=== PATIENT | female | born 1995 | race Caucasian/White ===

== ENCOUNTER 2023-04-19 05:02 | Inpatient (IN) | payer OTHER, SELFPAY ==
[2023-04-19] VITALS (243 sets, daily range): BP systolic 76–147; BP diastolic 40–95; PULSE 52–201; TEMP 36.1–37.2; O2SAT 84–100; BMI 36.9
--- NOTE | 2023-04-19 05:25 | LDADM ---
This patient, Sonia Plascencia, was admitted to Labor/Delivery/Recovery 105 on 04/19/23 at 05:02. Plans for labor, pain management and were discussed with patient. Patient/family oriented to hospital policies and general routines including ID bracelet, bed and alarms, visiting hours, pain management, procedures, bathroom and other care routines, personal items, smoking policy, room service/diet and guest tray routines, infant security routines, and visiting hours. Patient/Family are encouraged to report perceived risks to care and to ask questions if they do not understand what they are told or what they should do. See OBIX for further documentation.
[2023-04-19 05:52] LABS: Basophils Percent Auto 0.3 % (0.2-1.2); Eosinophils Absolute Auto 0.1 K/mm3 (0-0.3); Eosinophils Percent Auto 0.5 % (0-4.4); Hemoglobin 9.8 g/dL (12.0-15.0); Immature Granulocyte Absolute 0.06 K/mm3 (0.00-0.031); Immature Granulocyte Percent A 0.6 % (0-0.5); Lymphocytes Absolute Auto 2.32 K/mm3 (0.9-3.2); Lymphocytes Percent Auto 24.6 % (18.3-44.2); Mean Corpuscular HGB Conc 31.6 g/dl (32-36); Mean Corpuscular Hemoglobin 26.8 pg (26-34); Mean Corpuscular Volume 84.9 fl (80-100); Mean Platelet Volume 9.8 fl (7.4-10.4); Monocytes Absolute Auto 0.6 K/mm3 (0.1-0.6); Monocytes Percent Auto 5.8 % (2.6-8.5); Neutrophils Absolute Auto 6.4 K/mm3 (1.3-6.7); Neutrophils Percent Auto 68.2 % (45.5-73.1); Platelet Count Result 181 k/mm3 (150-375); Red Blood Count 3.65 M/mm3 (4.2-5.4); Red Cell Distribution Width 13.8 % (11.5-14.5); White Blood Count 9.4 K/mm3 (4.5-10.0)
[2023-04-19] MEDS: LACTATED RINGERS 1,000 ML 125 ML IV CONT ×3 (05:55→15:34)
[2023-04-19] MEDS: AMPICILLIN 2 GM/NS 100 ML 2 GM/100 ML BAG IVPB (05:55)
[2023-04-19] MEDS: OXYTOCIN 30 UNITS/NS 500 ML 30 UNITS/500 ML BAG IV CONT (05:55)
--- NOTE | 2023-04-19 06:30 | PM.IMHP ---
H&P: HPI History of Present Illness Date/Time: 04/19/23 06:30 Chief Complaint: induction of labor at term with positive group B strep Narrative: this is a 27-year-old 2 para 1 whose last menstrual period was 07/26/2022, EDC is 04/26/2023, confirmed by early ultrasound who presents at term for induction of labor. She is positive for group B strep. Her has been otherwise uncomplicated. [facility] Family History Family History Other Patient denies significant medical history Social History Social History Smoking status: Never smoker Substance use: never Lack of Transportation: No Lack of Food: Never True Current Housing: I Have Housing Concerned About Future Housing: No Difficulty Paying Gas/Electric Bills: No Difficulty Paying for Meds: No Currently Unemployed: No Education: Trade/Vocational Certificate Difficulty w/ Childcare or Family Care: No Spiritual care concerns: No Meds Home Medications and Allergies Home Medications Medication Instructions Recorded Confirmed Type prenat.vits,kurtis,xzp-[id number]-ampdq tablet 04/02/23 History Allergies Allergy/AdvReac Type Severity Reaction Status Date / Time hydrocodone Allergy Intermediate ITCHING,SWE Verified 04/02/23 13:42 LLING oxycodone Allergy Intermediate ITCHING,SWE Verified 04/02/23 13:42 LLING hydroxyzine Allergy Mild Itching Verified 04/02/23 13:42 Sulfa (Sulfonamide Allergy Redness of Verified 04/02/23 13:41 Antibiotics) Skin Vital Signs Vital Signs - 24 hr 04/19/23 05:24 04/19/23 05:31 04/19/23 05:57 Pulse Rate 88 79 82 Blood Pressure 128/66 123/76 128/78 Oxygen Delivery 04/19/23 06:01 04/19/23 06:16 04/19/23 05:25 Pulse Rate 81 80 Blood Pressure 128/74 125/63 Oxygen Delivery Room Air Exam Const: General: cooperative, healthy appearing, comfortable and overweight Orientation/consciousness: oriented to person, oriented to place and oriented to time HENMT: Head: normal to inspection Resp: Effort & Inspection: normal respiratory effort Cardio: Rate: regular rate Rhythm: regular rhythm Heart sounds: S1 normal heart sound present and S2 normal heart sound present GI: Inspection: normal to inspection ( Gravid soft uterus) : External Female Exam: normal external appearance Speculum Exam - Vagina: normal appearance of the vagina Speculum Exam - Cervix: normal appearance of the cervix ( 2/50/2. AROM clear. FHTs reassuring) H&P: Results Labs Labs: Short CBC 04/19/23 Range/Units 05:45 WBC 9.4 (4.5-10.0) K/mm3 Hgb 9.8 L (12.0-15.0) g/dL Hct 31.0 L (37.0-47.0) % Plt Count 181 (150-375) k/mm3 Assessment and Plan Assessment and plan (1) Term : Code(s): Z34.90 - Encounter for supervision of normal , unspecified, unspecified trimester Status: Acute (2) Positive testing for group B Streptococcus: Code(s): B95.1 - Streptococcus, group B, as the cause of diseases classified elsewhere Status: Acute Plan medical induction of labor. Group B strep prophylaxis. Spontaneous vaginal delivery expected. She is an epidural candidate
[2023-04-19 07:58] LABS: Rapid Plasma Reagin Non-Reactive (NonReactive)
--- NOTE | 2023-04-19 10:03 | WPDANESEPP ---
Anes - Eval Pre Procedure Procedure: Labor Epidural Date/Time: 04/19/23 10:03 Surgeon: Harmeet Preop Diagnosis: Labor Pain Pre Op Diagnosis: Induction of Labor Patient Data Age: 28 Gender: F Height: 1.63 m Weight: 97.72 kg Last Vital Signs Temp 36.5 C 04/19/23 09:00 Pulse 76 04/19/23 10:01 BP 125/54 L 04/19/23 10:01 Pulse Ox 100 04/19/23 09:58 O2 Del Method Room Air 04/19/23 05:25 Allergies Allergy/AdvReac Type Severity Reaction Status Date / Time hydrocodone Allergy Intermediate ITCHING,SWE Verified 04/02/23 13:42 LLING oxycodone Allergy Intermediate ITCHING,SWE Verified 04/02/23 13:42 LLING hydroxyzine Allergy Mild Itching Verified 04/02/23 13:42 Sulfa (Sulfonamide Allergy Redness of Verified 04/02/23 13:41 Antibiotics) Skin Home Medications Medication Instructions Recorded Confirmed Type prenat.vits,kurtis,yzp-qxhq-xnblb tablet 04/02/23 History Laboratory Tests 04/19/23 05:45 WBC 9.4 K/mm3 (4.5-10.0) RBC 3.65 L M/mm3 (4.2-5.4) Hgb 9.8 L g/dL (12.0-15.0) Hct 31.0 L % (37.0-47.0) MCV 84.9 fl (80-100) MCH 26.8 pg (26-34) MCHC 31.6 L g/dl (32-36) RDW 13.8 % (11.5-14.5) Plt Count 181 k/mm3 (150-375) MPV 9.8 fl (7.4-10.4) Immature Gran % (Auto) 0.6 H % (0-0.5) Neut % (Auto) 68.2 % (45.5-73.1) Lymph % (Auto) 24.6 % (18.3-44.2) [place] % (Auto) 5.8 % (2.6-8.5) Eos % (Auto) 0.5 % (0-4.4) Baso % (Auto) 0.3 % (0.2-1.2) Lymph # (Auto) 2.32 K/mm3 (0.9-3.2) [place] # (Auto) 0.6 K/mm3 (0.1-0.6) Eos # (Auto) 0.1 K/mm3 (0-0.3) Baso # (Auto) 0.0 K/mm3 (0.0-0.1) Abs Immat Gran (auto) 0.06 H K/mm3 (0.00-0.031) Absolute Neuts (auto) 6.4 K/mm3 (1.3-6.7) Absolute Nucleated RBC 0.0 K/mm3 (0.0-0.012) Nucleated RBC % 0.0 % (0.0-0.2) RPR Non-reactive (NonReactive) Blood Type A Positive Antibody Screen Negative : gestational age (JOSÉ 04/26/23, ) HCG: negative Patient hx anesthesia problems: none Family hx anesthesia problems: none Results Review: All pre-operative results and documents have been reviewed as part of the pre-operative evaluation. [facility] Family History Family History Other Patient denies significant medical history Social History Social History Smoking status: Never smoker Substance use: never Lack of Transportation: No Lack of Food: Never True Current Housing: I Have Housing Concerned About Future Housing: No Difficulty Paying Gas/Electric Bills: No Difficulty Paying for Meds: No Currently Unemployed: No Education: Trade/Vocational Certificate Difficulty w/ Childcare or Family Care: No Spiritual care concerns: No Exam Day of Procedure 04/19/23 10:03 Patient weight: obese Heart: regular rate and rhythm Lungs: normal air movement Airway: Mallampati scale class II Neurological: alert and oriented
[2023-04-19] MEDS: AMPICILLIN 1 GM/NS 50 ML 1 GM/50 ML BAG IVPB ×3 (10:10→17:49)
--- NOTE | 2023-04-19 11:46 | PM.OBPNLAB ---
Pain Control Date/time seen: 04/19/23 11:46 Pain control: tolerating well and epidural Pelvic Exam Dilation (cm): 3 Effacement (%): 80 station: -2 Amniotic membrane status: Leaking
[2023-04-19] MEDS: SODIUM CHLORIDE 0.9% IV 300 ML 600 ML I-UTERINE (13:44)
--- NOTE | 2023-04-19 16:33 | PM.OBPNLAB ---
Pain Control Date/time seen: 04/19/23 16:33 Pain control: tolerating well and epidural Pelvic Exam Dilation (cm): 5 Effacement (%): 80 station: -2 Amniotic membrane status: Leaking Contractions Monitor mode: Internal
[2023-04-19] MEDS: ONDANSETRON INJ 4 MG/2 ML VIAL IV PUSH (18:12)
[2023-04-19] MEDS: SODIUM CHLORIDE 0.9% IV 1,000 ML 150 ML I-UTERINE (18:27)
--- NOTE | 2023-04-19 21:48 | PM.OBPRVD ---
OB - Delivery Note Procedure Delivery date: 04/19/23 Procedure: mil Events: Elective Induction of Labor and Positive Group B Strep (GBS) Induction method: AROM Delivery augmentation: Pitocin Delivery monitor: External FHT and Internal Uterine Route of delivery: Episiotomy description: None Laceration Description: None Quantitative Blood Loss (ml): 160 Anesthesia type: Epidural Disposition: Floor [place] Baby Date of : 04/19/23 Time of : 21:36 Weeks of gestation at delivery: 39 gender: Male presentation: vertex position: Right Occiput Anterior Placenta delivery description: Spontaneous Cord Vessel Description: 3 Vessels and Delayed Cord Clamping score one minute: 8 score five minutes: 9 Narrative: ampx 4 for gbs
[2023-04-19] MEDS: OXYTOCIN 30 UNITS/NS 500 ML 30 UNITS/500 ML BAG 125 UNITS IV CONT (22:05)
[2023-04-19] MEDS: IBUPROFEN 600 MG TABLET PO (22:33)
[2023-04-19] MEDS: WITCH HAZEL 40 PADS 1 PAD TOPICAL (23:46)
[2023-04-19] MEDS: BENZOCAINE 20% AER SPR (*SP) 56 GM CAN 1 SPRAY TOPICAL (23:46)
--- NOTE | 2023-04-20 00:05 | PC.NURSE ---
Patient transferred to post room #290 per wheelchair from labor and delivery. Support person present. Oriented to unit, room, information board, rooming in, admission packet and security measures. Patient verbalizes understanding.
[2023-04-20 00:20] VITALS: BP 114/60; PULSE 78; RESP 18; TEMP 36.8
[2023-04-20 04:35] VITALS: BP 104/63; PULSE 57; RESP 16; TEMP 36.4
[2023-04-20] MEDS: IBUPROFEN 600 MG TABLET PO ×3 (04:38→17:18)
[2023-04-20 05:45] LABS: Hematocrit 27.4 % (37.0-47.0); Hemoglobin 8.6 g/dL (12.0-15.0)
--- NOTE | 2023-04-20 08:14 | PM.DS ---
DS: Admitting Diagnosis Discharge Date C704/21/23 Admitting Diagnosis term with positive group B strep DS: Discharge Diagnosis Discharge Diagnosis (1) Positive testing for group B Streptococcus: Code(s): B95.1 - Streptococcus, group B, as the cause of diseases classified elsewhere Status: Acute (2) Term : Code(s): Z34.90 - Encounter for supervision of normal , unspecified, unspecified trimester Status: Acute DS: Summary Hospital Course Reason for hospitalization: patient was in induced at term with positive group B strep Hospital Course: patient underwent spontaneous vaginal delivery with adequate group B strep prophylaxis on 04/19/2023. Her hospital course unremarkable. She remained afebrile. She was up, voiding without difficulty, ambulating, eating regular diet, general without complaints. Time Spent with Patient Time attestation: Total time spent providing and/or coordinating discharge services: Exam Const: General: cooperative, healthy appearing and comfortable Nutritional Appearance: average body habitus Orientation/consciousness: oriented to person, oriented to place and oriented to time HENMT: Head: normal to inspection Resp: Effort & Inspection: normal respiratory effort Cardio: Rate: regular rate Rhythm: regular rhythm Heart sounds: S1 normal heart sound present and S2 normal heart sound present GI: Inspection: normal to inspection ( Fundus firm below the umbilicus) DS: Data Data Completed and Pending Labs on day of discharge: Labs from last 24 hours 04/20/23 04:38 Hgb 8.6 L Hct 27.4 L Discharge Plan Discharge Attending physician on discharge: Gallito Early Discharging Clinician: Gallito Early Patient Disposition: Home, Self-Care Activity: may shower and pelvic rest Diet: heart healthy Patient Instructions: Antibiotic Form Stand Alone Forms: General Discharge Information Follow-up/Referrals: Gallito Early MD [Physician] - Discharge Medications: Continued #2 Tablet Date of admission: 04/19/23 05:02 Primary Care Provider: Maria FernandaFrances Admitting Provider: Gallito Early Attending physician on admission: Gallito Early Condition: Stable
[2023-04-20 08:30] VITALS: BP 117/69; PULSE 66; RESP 16; TEMP 36.1; O2SAT 100
[2023-04-20] MEDS: DOCUSATE SODIUM 100 MG CAPSULE PO ×2 (08:41→17:17)
[2023-04-20] MEDS: POLYSACCHARIDE IRON COMPLEX 150 MG CAPSULE PO ×2 (08:41→17:17)
[2023-04-20] MEDS: MULTIVIT/MIN/PREN/FOL AC/IRON TABLET 1 TAB PO (08:41)
--- NOTE | 2023-04-20 09:32 | PC.NURSE ---
[id number] Introductions were made, then consulted with patient to assess needs related to . Mother led the conversation with her?plans to feed?her infant and the?experience so far. Resources provided for inpatient and outpatient services with the mom/baby guide and name written on the white board. Parents voiced understanding of information and will call if there is a request for assistance.
--- NOTE | 2023-04-20 09:36 | PM.OBPNVD ---
OB - PN: Subj Subjective Date/time seen: 04/20/23 09:36 Patient comments: no complaints and pain well controlled baby status: doing well OB - PN: Obj Data Labs 04/20/23 04:38 Labs: Laboratory Results - last 24 hr 04/20/23 04:38 Hgb 8.6 L Hct 27.4 L OB - PN A/P Plan day: 1 Plan: routine care Time Spent With Patient Time: Total time spent is greater than 50% in coordination of care (as documented) at patient's floor/unit and/or counseling patient: Time with patient: less than 15 minutes Exam Const: General: cooperative, healthy appearing and comfortable Nutritional Appearance: average body habitus Orientation/consciousness: oriented to person, oriented to place and oriented to time Resp: Effort & Inspection: normal respiratory effort Cardio: Rate: regular rate Rhythm: regular rhythm Heart sounds: S1 normal heart sound present and S2 normal heart sound present GI: Inspection: normal to inspection
--- NOTE | 2023-04-20 11:49 | PC.NURSE ---
[id number] Consulted with patient to assess needs related to after a request related to being sleepy after a circumcision and PO medication. Mother works well with her with encouragement, however, mother attempts to push her nipple in her infants mouth without a big open wide gape. Reviewed working with , supporting breast and how to protect the nipples with an optimal deep latch, good positioning, and good hand washing. The left nipple is visualized to have some purple areas that are small. Reviewed and demonstrated different techniques to stimulate infant for wakefulness to breastfeed. Encouraged understanding the benefits of skin to skin, responding to feeding cues, frequencies of feeding 8-12 times in 24 hours (approximately 2-3 hours), duration of feedings, milk production, intake/output feeding sheet and signs of adequate intake encouraging swallowing at the breast. Reviewed positioning and alignment, supporting breast, off-centered (asymmetrical latch) and leading with the chin with big, open, wide gape. Infant latched optimally to the left breast in football position and effectively breastfed with swallowing for 5 minutes, then self detached. Education given to mother of how to visualize suck/swallow and listening for drinking at the breast. Infant was then burped and stimulated for wakefulness to offer the second breast. Infant was optimally latched to the right breast using football positioning with minimal assistance from the RN. was able to maintain latch without discomfort to mother with swallowing heard. Encouraged mother with frequency of offering the breast on demand or with encouragement every 2.5-3 hours using the pie demonstration as a guide of if her is getting enough. Nipple care reviewed with optimal latch, good positioning and using clean hands when feeding her and touching her breast. Resources used to facilitate learning were used from the tool, mom and baby guide. Mother voiced understanding of the education shared, to call for assistance if the infant does not latch or if there is discomfort with .
[2023-04-20 12:13] VITALS: BP 118/54; PULSE 70; RESP 16; TEMP 36.5; O2SAT 100
[2023-04-20 20:40] VITALS: BP 111/51; PULSE 71; RESP 18; TEMP 36.9
--- NOTE | 2023-04-21 03:55 | PM.OBPNVD ---
OB - PN: Subj Subjective Date/time seen: 04/21/23 03:55 Patient comments: no complaints and pain well controlled baby status: doing well and nursing well OB - PN: Obj Data Labs 04/20/23 04:38 Labs: Laboratory Results - last 24 hr 04/20/23 04:38 Hgb 8.6 L Hct 27.4 L OB - PN A/P Plan day: 2 Plan: routine care, discharge home and follow up 6 weeks Time Spent With Patient Time: Total time spent is greater than 50% in coordination of care (as documented) at patient's floor/unit and/or counseling patient: Time with patient: less than 15 minutes Exam Const: General: cooperative, healthy appearing and comfortable Nutritional Appearance: average body habitus Orientation/consciousness: oriented to person, oriented to place and oriented to time HENMT: Head: normal to inspection Resp: Effort & Inspection: normal respiratory effort Cardio: Rate: regular rate Rhythm: regular rhythm Heart sounds: S1 normal heart sound present and S2 normal heart sound present GI: Inspection: normal to inspection ( fundus firm below umbilicus)
[2023-04-21 08:00] VITALS: BP 111/72; PULSE 61; RESP 16; TEMP 36.5; O2SAT 100
[2023-04-21] MEDS: DOCUSATE SODIUM 100 MG CAPSULE PO (10:36)
[2023-04-21] MEDS: POLYSACCHARIDE IRON COMPLEX 150 MG CAPSULE PO (10:36)
[2023-04-21] MEDS: MULTIVIT/MIN/PREN/FOL AC/IRON TABLET 1 TAB PO (10:37)
--- NOTE | 2023-04-21 11:07 | PC.NURSE ---
Patient viewed the discharge video Mother & Baby Care, The First Two Weeks . Patient was given the opportunity and encouraged to ask questions. Patient verbalized understanding of information shared and has been given the mother/baby guide for home reference.
[2023-04-23 10:11] VITALS: BP 123/71; PULSE 99; RESP 18; TEMP 37; O2SAT 99
== END 2023-04-21 12:05 | disposition home or self-care (01) | DRG 560 ==
LOC: ANHLDR 05:06 → ANHOB2 04-20 00:23
PROVIDERS: Admitting Provider Obstetrics & Gynecology; PCP Family Medicine; Visit Provider Obstetrics & Gynecology
DX: O99.824 Streptococcus B carrier state complicating childbirth (principal); Z37.0 Single live birth; Z3A.39 39 weeks gestation of pregnancy
CPT/HCPCS: 36415; 85014; 85018; 85025; 86592; 86850; 86900; 86901; A9270; J0290; J2405; J2590; J2795; J7030; J7120